=== PATIENT | female | born 1970 | race Caucasian/White ===

== ENCOUNTER 2017-03-27 23:12 | Emergency (ER) | payer OTHER ==
[2017-03-27 23:31] LABS: BASOPHIL 0.5 % (0-2); EOSINOPHIL 1.5 % (0-5); HCT 46.1 % (37.0-47.0); HGB 16.7 g/dl (12.5-16.0); LYMPHOCYTE 29.3 % (15-48); MCH 33.4 pg (25.0-31.0); MCHC 36.2 g/dL (32.0-36.0); MCV 92.2 fL (78.0-100.0); MONOCYTE 11.5 % (0-12); MPV 8.7 fL (6.0-9.5); NEUTROPHIL 57.2 % (41-80); PLT 278 K/uL (150-400); RDW 13.6 % (11.5-14.0); WBC 12.9 K/uL (4.0-10.5)
[2017-03-27 23:41] LABS: INR 0.94 (0.9-1.2); PROTHROMBIN TIME 12.2 SECONDS (11.7-14.0)
[2017-03-27 23:42] LABS: PTT 33.1 SECONDS (23.2-31.4)
[2017-03-27 23:43] LABS: D-DIMER 0.34 ug/mLFEU (0.00-0.41)
[2017-03-27 23:48] LABS: ALBUMIN 4.8 g/dL (3.5-5.0); BILIRUBIN - TOTAL 0.3 mg/dL (0.1-1.0); CREATININE 0.7 mg/dL (0.5-1.0); GLOBULIN (CALCULATION) 2.4 g/dL (2.2-4.2); MAGNESIUM 2.16 mg/dL (1.40-2.10); POTASSIUM 3.8 mmol/L (3.5-5.1); TOTAL PROTEIN 7.2 g/dL (6.4-8.3)
[2017-03-27 23:52] LABS: CKMB 2.34 ng/mL (0.97-4.94); MYOGLOBIN 38 ng/mL (26-65); PRO-BNP 22 pg/mL (0-125); TROPONIN T < 0.010 ng/mL
== END 2017-03-28 02:55 | disposition home or self-care (01) ==
LOC: FER 23:12
PROVIDERS: Emergency Medicine
DX: R07.9 Chest pain, unspecified (principal); F41.9 Anxiety disorder, unspecified; F17.210 Nicotine dependence, cigarettes, uncomplicated; Z79.899 Other long term (current) drug therapy
CPT/HCPCS: 36415; 71010; 80053; 82550; 82553; 83735; 83874; 83880; 84484; 85025; 85379; 85610; 85730; 93005